=== PATIENT | male | born 1945 | race Caucasian/White ===

== ENCOUNTER 2020-11-07 02:00 | Emergency (ER) | payer MEDICARE ==
[~2020-11-07] VITALS: Ht 165.1 cm; Wt 63.5 kg
[2020-11-07 02:00] VITALS: BP_SYST 126
--- NOTE | 2020-11-07 02:00 | NUR ---
Patient to ER bed 5 to gown for evaluation. Side rails up. Report given to self. ER Dr. Penn at bedside examining patient. Patient noted to have cool left foot upon palpation. Unable to note a pulse to DP of left foot but good PT to left foot. Limited ROM 2nd to pain and swelling, Sensation intact. Bed to low position sr up. Continue to monitor.
[2020-11-07] MEDS ORDERED: GLU500 PO (02:14)
[2020-11-07] MEDS ORDERED: TAMS-11 PO (02:14)
[2020-11-07] MEDS ORDERED: ONDANSETRON HCL 4 MG/2 ML VIAL IVP ONE (02:30)
[2020-11-07] MEDS ORDERED: MORPHINE 4 MG INJ. 4 MG/ML VIAL IVP ONE (02:30)
[2020-11-07] MEDS ORDERED: NACL 0.9% 1,000 ML IV ONE (02:30)
--- NOTE | 2020-11-07 02:30 | NUR ---
# 20 gauge angiocath placed to Left Forearm. Use of asceptic technique. Opsite placed over site. Blood return noted. Flushed with 10 cc of normal saline. No evidence of infiltration noted. Patient tolerated well.
--- NOTE | 2020-11-07 02:44 | NUR ---
Medicated w/ Morphine and Zofran per MD orders. IVF infusing with no s/s of infiltration at this time. Will cont to monitor and observe for any adverse reaction. Bed to low position sr up, continue to monitor.
[2020-11-07] MEDS ORDERED: fentaNYL CITRATE/PF 100 MCG/2 ML AMP IVP ONE (02:45)
[2020-11-07] MEDS ORDERED: PROPOFOL 200MG/ 20ML VIAL (DIPRIVAN) IV ONE (02:45)
--- NOTE | 2020-11-07 03:15 | NUR ---
ER Dr. Gordon at bedside examining patient and to explain reduction procedures for reduction of compount fx of lle. RT notified, splinting supplies to be placed at bedside. Patient to be medicated by MD marin/ 100mcg of fentanyl and 100mg of Proprofol. Iv site to Left forearm patent and intact. Patient placed on propeller tester. continue to monitor.
--- NOTE | 2020-11-07 03:29 | NUR ---
Time out called, RT MD Evan Mccabe, and RN Kenan Springer all verified right procedure, right patient, right extremity (LLE).
--- NOTE | 2020-11-07 03:30 | NUR ---
Begin of conscious sedation. Crash cart at bedside, RT/MD and RN at bedside, patient placed on 2l n/c, iv site patent and intact. Placed on self sealing fuel tank builder nsr.
[2020-11-07 03:34] LABS: BASOPHILS % (AUTO) 0.5 % (0.0-2.0); EOSINOPHILS # (AUTO) 0.2 K/uL (0.0-0.4); HEMATOCRIT 37.1 % (36-54); HEMOGLOBIN 12.2 g/dL (14.0-18.0); LYMPHOCYTES # (AUTO) 0.8 K/uL (1.0-5.5); MEAN CORPUSCULAR HEMOGLOBIN 31 pg (27-31); MEAN CORPUSCULAR HGB CONC 33 % (32-36); MEAN CORPUSCULAR VOLUME 94 fL (79.0-98.0); MONOCYTES # (AUTO) 0.7 K/uL (0.0-1.0); MONOCYTES % (AUTO) 7.2 % (1.7-9.3); NEUTROPHILS # (AUTO) 7.5 K/uL (1.8-7.7); NEUTROPHILS % (AUTO) 81.3 % (40.0-70.0); PLATELET COUNT (AUTO) 136 K/uL (130-430); RED BLOOD CELL COUNT(AUTO) 3.95 MIL/uL (4.2-6.2); RED CELL DISTRIBUTION WIDTH 13.3 % (9.0-15.0); WHITE BLOOD COUNT (AUTO) 9.2 K/uL (4.8-10.8)
--- NOTE | 2020-11-07 03:35 | NUR ---
Reduction of Left tib/fib completed. Patient splinted w/ long leg and stirrup splinting. NVI, crf <3 sec. color returned to toes.
[2020-11-07 03:41] LABS: ANION GAP 3 (5-15); CALCIUM 7.9 mg/dL (8.4-11.0); CHLORIDE 109 mmol/L (98-107); CREATININE 0.86 mg/dL (0.55-1.30); GLUCOSE 226 mg/dL (70-99); POTASSIUM 4.3 mmol/L (3.5-5.1); SODIUM SERUM 142 mmol/L (136-145); UREA NITROGEN, BLOOD 12 mg/dL (8-21)
[2020-11-07] MEDS ORDERED: IOHEXOL 350 mgI/mL, 150 ML INFUS..BTL IV ONE (04:19)
--- NOTE | 2020-11-07 05:00 | NUR ---
Patient to be transferred to [facility]. Is being transferred due to higher level of care. Receiving facility has accepting physician and available space. ER physician has signed transfer form. Patient or responsible alliance party has agreed to transfer and signed form. Patient belongings inventoried and will be sent with patient. Copy of nursing notes, lab reports, EKG, Physicians Orders and X-rays to be sent with patient. Report called to CN at receiving facility. Receiving physician is Ginger. [facility] has been called for transfer. ETA is [id number].
[2020-11-07 05:07] VITALS: BP_SYST 146
== END 2020-11-07 05:20 ==
LOC: SED 02:00
DX: S82.832A Other fracture of upper and lower end of left fibula, initial encounter for closed fracture (principal); S82.102A Unspecified fracture of upper end of left tibia, initial encounter for closed fracture; E11.9 Type 2 diabetes mellitus without complications; Z79.84 Long term (current) use of oral hypoglycemic drugs; Z79.899 Other long term (current) drug therapy; I99.8 Other disorder of circulatory system; V49.49XA Driver injured in collision with other motor vehicles in traffic accident, initial encounter; Y93.89 Activity, other specified; Y92.89 Other specified places as the place of occurrence of the external cause; Y99.8 Other external cause status
CPT/HCPCS: 27532; 36415; 73590; 80048; 85025; 86886; 86900; 86901; 96361; 96374; 96375; 99285; J2270; J2405; J2704; J3010; J7030; Q9967